=== PATIENT | male | born 1990 | race American Indian/Alaskan Native ===

== ENCOUNTER 2021-04-24 04:04 | Emergency (ER) | payer BC, OTHER ==
[2021-04-24 04:37] VITALS: BP 155/70
[2021-04-24] MEDS ORDERED: predniSONE 20 MG TAB PO ONE (04:39)
[2021-04-24] MEDS ORDERED: IPRATROPIUM/ALBUTEROL SULFATE 3 ML AMPUL.NEB IH ONE ×2 (04:39→05:32)
--- NOTE | 2021-04-24 04:45 | Emergency Department Report ---
- General Chief Complaint: Dyspnea/Respdistress Stated Complaint: CHEST PAIN/WHEEZING/SHORTNESS OF BREATH Source: patient Mode of arrival: Ambulatory Limitations: No Limitations - History of Present Illness Initial Comments: Patient is a 30-year-old -[place] male with a remote history of asthma who presents to the ED with complaint of acute onset persistent nasal and sinus congestion, persistent dry cough and wheezing with shortness of breath for the last 1 week. Patient states that in the last 3 days the persistent cough and shortness of breath is worsened. Patient denies fever, chills, nausea, vomiting, diarrhea, dizziness, syncope, sore throat, change in vision, lightheadedness or abdominal pain. MD Complaint: cough, rhinorrhea, nasal congestion, other (Shortness of breath) -: Sudden, week(s) (1) Severity: severe Severity scale (0 -10): 7 Quality: dull, aching Consistency: constant Improves With: nothing Worsens With: nothing Associated Symptoms: denies other symptoms, myalgias, headache, rhinorrhea, cough. denies: fever, chills, diaphoresis, stiff neck, chest pain, shortness of breath, abdominal pain, nausea, rash, right sweats, weight loss, epistaxis, hoarseness Treatments Prior to Arrival: none - Related Data Previous Rx's Medication Instructions Recorded Last Taken Type Albuterol Sulfate [Proventil Hfa] 1 - 2 puff IH Q6H PRN #1 hfa.aer.ad 04/24/21 Unknown Rx Azithromycin [Zithromax Z-SEBASTIAN] 250 mg PO DAILY #6 tablet 04/24/21 Unknown Rx Benzonatate [Tessalon Perles] 100 mg PO Q8HR #30 capsule 04/24/21 Unknown Rx Cetirizine HCl [Zyrtec 10mg tab] 10 mg PO DAILY #30 tablet 04/24/21 Unknown Rx methylPREDNISolone [Medrol 4MG 4 mg PO DAILY #21 tab.ds.pk 04/24/21 Unknown Rx DOSEPAK (21 tabs)] ED Review of Systems ROS: Stated complaint: CHEST PAIN/WHEEZING/SHORTNESS OF BREATH Other details as noted in HPI Constitutional: denies: chills, fever Eyes: denies: eye pain, eye discharge, vision change ENT: congestion, other (Nasal and sinus congestion). denies: ear pain, throat pain Respiratory: cough, shortness of breath, wheezing Cardiovascular: denies: chest pain, palpitations Endocrine: no symptoms reported Gastrointestinal: denies: abdominal pain, nausea, vomiting, diarrhea Genitourinary: denies: urgency, dysuria Musculoskeletal: denies: back pain, joint swelling, arthralgia Skin: denies: rash, lesions Neurological: denies: headache, weakness, paresthesias Psychiatric: denies: anxiety, depression Hematological/Lymphatic: denies: easy bleeding, easy bruising ED Past Medical Hx - Past Medical History Previous Medical History?: No - Surgical History Past Surgical History?: No - Medications Home Medications: Home Medications Medication Instructions Recorded Confirmed Last Taken Type Albuterol Sulfate [Proventil Hfa] 1 - 2 puff IH Q6H PRN #1 hfa.aer.ad 04/24/21 Unknown Rx Azithromycin [Zithromax Z-SEBASTIAN] 250 mg PO DAILY #6 tablet 04/24/21 Unknown Rx Benzonatate [Tessalon Perles] 100 mg PO Q8HR #30 capsule 04/24/21 Unknown Rx Cetirizine HCl [Zyrtec 10mg tab] 10 mg PO DAILY #30 tablet 04/24/21 Unknown Rx methylPREDNISolone [Medrol 4MG 4 mg PO DAILY #21 tab.ds.pk 04/24/21 Unknown Rx DOSEPAK (21 tabs)] ED Physical Exam - General Limitations: No Limitations General appearance: alert, in no apparent distress - Head Head exam: Present: atraumatic, normocephalic, normal inspection - Eye Eye exam: Present: normal appearance, PERRL, EOMI Pupils: Present: normal accommodation - ENT ENT exam: Present: normal orophraynx, mucous membranes moist, TM's normal bilaterally, normal external ear exam, other (Grossly congested nasal passages) - Neck Neck exam: Present: normal inspection, full ROM - Respiratory Respiratory exam: Present: wheezes (Mildly diffuse coarse wheezes). Absent: respiratory distress, rales, rhonchi, chest wall tenderness, decreased breath sounds, prolonged expiratory - Cardiovascular Cardiovascular Exam: Present: regular rate, normal rhythm, normal heart sounds. Absent: systolic murmur, diastolic murmur, rubs, gallop - GI/Abdominal GI/Abdominal exam: Present: soft, normal bowel sounds. Absent: tenderness, guarding, hyperactive bowel sounds, hypoactive bowel sounds, organomegaly - Extremities Exam Extremities exam: Present: normal inspection, full ROM, normal capillary refill - Back Exam Back exam: Present: normal inspection, full ROM. Absent: tenderness, CVA tenderness (R), CVA tenderness (L), muscle spasm - Neurological Exam Neurological exam: Present: alert, oriented X3, CN II-XII intact, normal gait, reflexes normal - Psychiatric Psychiatric exam: Present: normal affect, normal mood - Skin Skin exam: Present: warm, dry, intact, normal color. Absent: rash ED Course Vital Signs 04/24/21 04:30 Temperature 97.6 F Pulse Rate 73 Respiratory 18 Rate Blood Pressure 155/70 O2 Sat by Pulse 97 Oximetry ED Medical Decision Making - Radiology Data Radiology results: report reviewed, image reviewed [place] [id number] XRay Report Signed Patient: PARAG CORRALES MR#: [id number] : 1990 Acct:[id number] Age/Sex: 30 / M ADM Date: 04/24/21 Loc: ED Attending Dr: Ordering Physician: ALKO POWERS Date of Service: 04/24/21 Procedure(s): XR chest routine 2V Accession Number(s): [id number] cc: ALOK POWERS Fluoro Time In Minutes: CHEST 2 VIEWS INDICATION / CLINICAL INFORMATION: cough. COMPARISON: None available. FINDINGS: SUPPORT DEVICES: None. HEART / MEDIASTINUM: No significant abnormality. LUNGS / PLEURA: No significant pulmonary or pleural abnormality. No pneumothorax. ADDITIONAL FINDINGS: No significant additional findings. IMPRESSION: 1. No acute findings. Signer Name: Robert Burns MD Signed: 04/24/2021 5:07 AM Workstation Name: [id number] Transcribed By: DT Dictated By: Hudson Burns MD Electronically Authenticated By: Hudson Burns MD Signed Date/Time: 04/24/21506 DD/ 6 TD/TT: - Medical Decision Making This is a 30-year-old -Argent[place] male with a remote history of asthma who presents to the ED with complaint of acute onset persistent nasal and sinus congestion, persistent dry cough and wheezing with shortness of breath for the last 1 week. Patient states that in the last 3 days the persistent cough and shortness of breath is worsened. In the ED, patient is alert and oriented x3 and is not in any distress. Patient was treated in the ED with DuoNeb, oral prednisone and chest x-ray showed no acute cardiopulmonary abnormalities or pneumonitis. On reevaluation, patient felt better, patient was discharged home on medications and advised to follow-up with his primary care physician in 5 to 7 days for reevaluation. Patient was advised return to the ED immediately if symptoms get worse. - Differential Diagnosis Bronchitis; pneumonia; URI; sinusitis Critical care attestation.: If time is entered above; I have spent that time in minutes in the direct care of this critically ill patient, excluding procedure time. ED Disposition Clinical Impression: Acute upper respiratory infection, Acute asthmatic bronchitis Disposition: HOME / SELF CARE / HOMELESS Is pt being admited?: No Does the pt Need Aspirin: No Condition: Stable Instructions: Cough, Adult, [id number], Acute Bronchitis, Adult, [id number], Upper Respiratory Infection, Adult, [id number], Acute Bronchitis (ED) Additional Instructions: Chest x-ray showed no acute cardiopulmonary abnormalities or pneumonitis. Therefore take medication with food, drink plenty of fluids and follow-up with your primary care physician in 5 to 7 days for reevaluation. Return to the ED immediately if symptoms get worse. Prescriptions: methylPREDNISolone [Medrol 4MG DOSEPAK (21 tabs)] 4 mg PO DAILY #21 tab.ds.pk Albuterol Sulfate [Proventil Hfa] 1 - 2 puff IH Q6H PRN #1 hfa.aer.ad PRN Reason: Dyspnea Benzonatate [Tessalon Perles] 100 mg PO Q8HR #30 capsule Azithromycin [Zithromax Z-SEBASTIAN] 250 mg PO DAILY #6 tablet Cetirizine HCl [Zyrtec 10mg tab] 10 mg PO DAILY #30 tablet Referrals: [facility] [Provider Group] - 3-5 Days Forms: Work/School Release Form(ED) Time of Disposition: 04:43 Print Language: YAKUT
--- NOTE | 2021-04-24 05:11 | XRay Report ---
CHEST 2 VIEWS INDICATION / CLINICAL INFORMATION: cough. COMPARISON: None available. FINDINGS: SUPPORT DEVICES: None. HEART / MEDIASTINUM: No significant abnormality. LUNGS / PLEURA: No significant pulmonary or pleural abnormality. No pneumothorax. ADDITIONAL FINDINGS: No significant additional findings. IMPRESSION: 1. No acute findings. Signer Name: Robert Burns MD Signed: 04/24/2021 5:07 AM Workstation Name: [id number]
== END 2021-04-24 08:11 | disposition home or self-care (01) ==
LOC: ED 04:04
DX: J06.9 Acute upper respiratory infection, unspecified (principal); J45.909 Unspecified asthma, uncomplicated
CPT/HCPCS: 71046; 94640; 94644; 99283

== ENCOUNTER 2021-07-16 23:53 | Emergency (ER) | payer SELFPAY ==
[2021-07-17 00:34] VITALS: BP 134/66
[2021-07-17] MEDS ORDERED: predniSONE 20 MG TAB PO ONE (00:50)
--- NOTE | 2021-07-17 00:56 | Emergency Department Report ---
ED General Adult HPI - General Chief complaint: Chest Pain Stated complaint: CHEST PAIN Source: patient Mode of arrival: Ambulatory Limitations: No Limitations - History of Present Illness Initial comments: Patient is a 30-year-old -Maldivian male with a history of chronic bronchitis with occasional somewhat tobacco abuse who presents to the ED with complaint of acute onset persistent shortness of breath, persistent dry cough, pleuritic chest pain for the last 3 days. Patient states that the pain has been persistent and worse especially with cough or taking a deep breath. Patient denies dizziness, syncope, nausea, vomiting, palpitations, abdominal pain, diaphoresis, diarrhea, sore throat, urinary frequency and urgency, nasal and sinus congestion, headache and neck pain. MD Complaint: Cough, pleuritic chest pain, dyspnea -: Sudden, days(s) (3) Location: chest Radiation: non-radiation Severity scale (0 -10): 3 Quality: aching, dull Consistency: intermittent Improves with: none Worsens with: other (cough) Associated Symptoms: denies other symptoms, chest pain (pleuritic with cough), cough, shortness of breath. denies: confusion, diaphoresis, fever/chills, loss of appetite, malaise, nausea/vomiting, rash, other Treatments Prior to Arrival: none - Related Data Previous Rx's Medication Instructions Recorded Last Taken Type Albuterol Sulfate [Proventil Hfa] 1 - 2 puff IH Q6H PRN #1 hfa.aer.ad 04/24/21 Unknown Rx Azithromycin [Zithromax Z-SEBASTIAN] 250 mg PO DAILY #6 tablet 04/24/21 Unknown Rx Cetirizine HCl [Zyrtec 10mg tab] 10 mg PO DAILY #30 tablet 04/24/21 Unknown Rx Benzonatate [Tessalon Perles] 100 mg PO Q8HR #30 capsule 07/17/21 Unknown Rx Doxycycline Hyclate 100 mg PO Q12H #20 cap 07/17/21 Unknown Rx Ibuprofen [Motrin] 600 mg PO Q8H PRN #30 tablet 07/17/21 Unknown Rx methylPREDNISolone [Medrol 4MG 4 mg PO DAILY #21 tab.ds.pk 07/17/21 Unknown Rx DOSEPAK (21 tabs)] Allergies Allergy/AdvReac Type Severity Reaction Status Date / Time No Known Allergies Allergy Unverified 07/17/21 00:34 ED Review of Systems ROS: Stated complaint: CHEST PAIN Other details as noted in HPI Constitutional: denies: chills, fever Eyes: denies: eye pain, eye discharge, vision change ENT: denies: ear pain, throat pain Respiratory: cough, shortness of breath, wheezing Cardiovascular: chest pain (Pleuritic chest pain). denies: palpitations Endocrine: no symptoms reported Gastrointestinal: denies: abdominal pain, nausea, vomiting, diarrhea Genitourinary: denies: urgency, dysuria Musculoskeletal: denies: back pain, joint swelling, arthralgia Skin: denies: rash, lesions Neurological: denies: headache, weakness, paresthesias Psychiatric: denies: anxiety, depression Hematological/Lymphatic: denies: easy bleeding, easy bruising ED Past Medical Hx - Past Medical History Previous Medical History?: Yes Hx Asthma: Yes Additional medical history: Bronchitis - Surgical History Past Surgical History?: Yes Additional Surgical History: Right hand - Social History Smoking Status: Current Every Day Smoker Substance Use Type: None - Medications Home Medications: Home Medications Medication Instructions Recorded Confirmed Last Taken Type Albuterol Sulfate [Proventil Hfa] 1 - 2 puff IH Q6H PRN #1 hfa.aer.ad 04/24/21 Unknown Rx Azithromycin [Zithromax Z-SEBASTIAN] 250 mg PO DAILY #6 tablet 04/24/21 Unknown Rx Cetirizine HCl [Zyrtec 10mg tab] 10 mg PO DAILY #30 tablet 04/24/21 Unknown Rx Benzonatate [Tessalon Perles] 100 mg PO Q8HR #30 capsule 07/17/21 Unknown Rx Doxycycline Hyclate 100 mg PO Q12H #20 cap 07/17/21 Unknown Rx Ibuprofen [Motrin] 600 mg PO Q8H PRN #30 tablet 07/17/21 Unknown Rx methylPREDNISolone [Medrol 4MG 4 mg PO DAILY #21 tab.ds.pk 07/17/21 Unknown Rx DOSEPAK (21 tabs)] ED Physical Exam - General Limitations: No Limitations General appearance: alert, in no apparent distress - Head Head exam: Present: atraumatic, normocephalic, normal inspection - Eye Eye exam: Present: normal appearance, PERRL, EOMI Pupils: Present: normal accommodation - ENT ENT exam: Present: normal exam, normal orophraynx, mucous membranes moist, TM's normal bilaterally, normal external ear exam - Neck Neck exam: Present: normal inspection, full ROM - Respiratory Respiratory exam: Present: normal lung sounds bilaterally. Absent: respiratory distress, wheezes, rales, rhonchi, chest wall tenderness, accessory muscle use, decreased breath sounds - Cardiovascular Cardiovascular Exam: Present: regular rate, normal rhythm, normal heart sounds. Absent: systolic murmur, diastolic murmur, rubs, gallop - GI/Abdominal GI/Abdominal exam: Present: soft, normal bowel sounds. Absent: tenderness, guarding, rebound, hyperactive bowel sounds, hypoactive bowel sounds, organomegaly, mass - Extremities Exam Extremities exam: Present: normal inspection, full ROM, normal capillary refill - Back Exam Back exam: Present: normal inspection, full ROM. Absent: tenderness, CVA tenderness (R), CVA tenderness (L), muscle spasm, paraspinal tenderness, vertebral tenderness - Neurological Exam Neurological exam: Present: alert, oriented X3, CN II-XII intact, normal gait, reflexes normal - Psychiatric Psychiatric exam: Present: normal affect, normal mood - Skin Skin exam: Present: warm, dry, intact, normal color. Absent: rash ED Course Vital Signs 07/17/21 07/17/21 00:29 01:01 Temperature 98.6 F Pulse Rate 78 Respiratory 18 14 Rate Blood Pressure 134/66 O2 Sat by Pulse 99 Oximetry ED Medical Decision Making - Radiology Data Radiology results: report reviewed, image reviewed [address] [address] XRay Report Signed Patient: PARAG CORRALES MR#: [id number] : 1990 Acct:[id number] Age/Sex: 30 / M ADM Date: 07/16/21 Loc: ED Attending Dr: Ordering Physician: ALOK POWERS Date of Service: 07/17/21 Procedure(s): XR chest 1V ap Accession Number(s): [id number] cc: ALOK POWERS Fluoro Time In Minutes: CHEST 1 VIEW 07/17/2021 1:09 AM INDICATION / CLINICAL INFORMATION: Cough and dyspnea. COMPARISON: 04/24/21. FINDINGS: SUPPORT DEVICES: None. HEART / MEDIASTINUM: The heart size and pulmonary vasculature are normal. LUNGS / PLEURA: No significant pulmonary or pleural abnormality. No pneumothorax. ADDITIONAL FINDINGS: No significant additional findings. IMPRESSION: No acute abnormality or significant change. Signer Name: Zachary Alejo MD Signed: 07/17/2021 1:23 AM Workstation Name: [id number] Transcribed By: RT Dictated By: Zachary Alejo MD Electronically Authenticated By: Zachary Alejo MD Signed Date/Time: 07/17/21122 DD/ 2 TD/TT: Print - Medical Decision Making This is a 30-year-old -Maldivian male with a history of chronic bronchitis with occasional somewhat tobacco abuse who presents to the ED with complaint of acute onset persistent shortness of breath, persistent dry cough, pleuritic chest pain for the last 3 days. Patient states that the pain has been persistent and worse especially with cough or taking a deep breath. In the ED, patient is alert and oriented x3 and is not in distress. Patient is hemodynamically stable. Chest x-ray showed no acute cardiopulmonary abnormalities or pneumonitis. Patient was treated with oral prednisone in the ED and discharged home on medications. Patient was advised to follow-up with his primary care physician in 5 to 7 days for reevaluation or return to the ED immediately if symptoms get worse. - Differential Diagnosis Asthma; URI; bronchitis; pneumonia; Critical care attestation.: If time is entered above; I have spent that time in minutes in the direct care of this critically ill patient, excluding procedure time. ED Disposition Clinical Impression: Acute asthmatic bronchitis, Shortness of breath Disposition: HOME / SELF CARE / HOMELESS Is pt being admited?: No Does the pt Need Aspirin: No Condition: Stable Instructions: Shortness of Breath, Adult, Jjxv-[id number], Cough, Adult, Wjuv-hl-Gskn, Asthma, Adult, Imvw-lr-Uvrn, Chronic Bronchitis, Adult, Acute Bronchitis (ED) Additional Instructions: Chest x-ray showed no acute cardiopulmonary abnormalities or pneumonitis. Your symptoms are likely exacerbation of chronic bronchitis with chest wall pain. Therefore take medications with food, drink plenty of fluids and follow-up with your primary care physician in 7 to 10 days for reevaluation. Return to the ED immediately if symptoms get worse. Prescriptions: Doxycycline Hyclate 100 mg PO Q12H #20 cap methylPREDNISolone [Medrol 4MG DOSEPAK (21 tabs)] 4 mg PO DAILY #21 tab.ds.pk Ibuprofen [Motrin] 600 mg PO Q8H PRN #30 tablet PRN Reason: Pain Benzonatate [Tessalon Perles] 100 mg PO Q8HR #30 capsule Referrals: [facility] [Provider Group] - 7-10 days Time of Disposition: 00:54 Print Language: SERBIAN
[2021-07-17] MEDS ORDERED: IBUPROFEN 600 MG TAB PO ONE (00:57)
--- NOTE | 2021-07-17 01:28 | XRay Report ---
CHEST 1 VIEW 07/17/2021 1:09 AM INDICATION / CLINICAL INFORMATION: Cough and dyspnea. COMPARISON: 04/24/21. FINDINGS: SUPPORT DEVICES: None. HEART / MEDIASTINUM: The heart size and pulmonary vasculature are normal. LUNGS / PLEURA: No significant pulmonary or pleural abnormality. No pneumothorax. ADDITIONAL FINDINGS: No significant additional findings. IMPRESSION: No acute abnormality or significant change. Signer Name: Zachary Alejo MD Signed: 07/17/2021 1:23 AM Workstation Name: [id number]
--- NOTE | 2021-07-17 11:45 | Electrocardiograph Report ---
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
== END 2021-07-17 01:40 | disposition home or self-care (01) ==
LOC: ED 23:53
DX: J45.901 Unspecified asthma with (acute) exacerbation (principal); R06.02 Shortness of breath; J45.909 Unspecified asthma, uncomplicated
CPT/HCPCS: 71045; 93005; 93010; 99283

== ENCOUNTER 2021-08-10 05:56 | Emergency (ER) | payer SELFPAY ==
[2021-08-10 06:33] VITALS: BP 116/78
[2021-08-10] MEDS ORDERED: IBUPROFEN 400 MG TAB PO ONE (09:49)
--- NOTE | 2021-08-10 09:50 | Emergency Department Report ---
ED General Adult HPI - General Chief complaint: Dyspnea/Respdistress Stated complaint: Cough, back pain, mucus production PUI?: No Time Seen by Provider: 08/10/21 09:29 Source: patient, RN notes reviewed, old records reviewed Mode of arrival: Ambulatory Limitations: No Limitations - History of Present Illness Initial comments: The patient was evaluated in the emergency department for symptoms described in the history of present illness. He/she was evaluated in the context of the global COVID-19 pandemic, which necessitated consideration that the patient might be at risk for infection with the virus that causes COVID-19. Institutional protocols and algorithms that pertain to the evaluation of patients at risk for COVID-19 are in a state of rapid change based on information released by regulatory bodies including the CDC and federal and state organizations. These policies and algorithms were followed during the patient's care in the emergency department. Please note that these policies, procedures and recommendations changed on a rapid basis. This patient is a 31-year-old gentleman, presenting to the ER with a complaint of persistent cough and phlegm production as well as mechanical lower back pain. The symptoms have been going on for weeks to months. He reports that he does not smoke cigarettes or marijuana. He reports that he was diagnosed with COVID-19 twice last year. He does not have a local primary care doctor. He recently relocated here from [facility]. He also reports chronic mechanical lower back pain, and reports that he was supposed to have an outpatient MRI in [place], months or years ago. At the moment, denies fever, vomiting, chest pain, abdominal pain, testicular pain, extremity weakness/numbness. He is adamant that he does not smoke marijuana. He does not know if he is exposed to secondhand marijuana, but reports "everybody in [place] smokes weed." -: Gradual, week(s) Location: back Severity scale (0 -10): 10 Quality: aching Consistency: intermittent Improves with: none Worsens with: none - Related Data Previous Rx's Medication Instructions Recorded Last Taken Type Cetirizine HCl [Zyrtec 10mg tab] 10 mg PO DAILY #30 tablet 04/24/21 Unknown Rx Ibuprofen [Motrin 600 MG tab] 600 mg PO Q8H PRN #30 tablet 07/17/21 Unknown Rx Albuterol Sulfate [Proventil Hfa] 1 - 2 puff IH Q6H PRN #1 hfa.aer.ad 08/10/21 Unknown Rx Benzonatate [Tessalon Perles] 100 mg PO Q8HR #30 capsule 08/10/21 Unknown Rx Allergies Allergy/AdvReac Type Severity Reaction Status Date / Time No Known Allergies Allergy Unverified 07/17/21 00:34 ED Review of Systems ROS: Stated complaint: CHEST PAIN/SOB/COUGH Other details as noted in HPI Constitutional: denies: fever ENT: congestion Respiratory: cough, wheezing Cardiovascular: denies: chest pain Gastrointestinal: denies: abdominal pain Genitourinary: denies: testicular pain Musculoskeletal: back pain Neurological: denies: weakness ED Past Medical Hx - Past Medical History Hx Asthma: Yes Additional medical history: Bronchitis - Surgical History Additional Surgical History: Right hand - Social History Smoking Status: Current Every Day Smoker Substance Use Type: None - Medications Home Medications: Home Medications Medication Instructions Recorded Confirmed Last Taken Type Cetirizine HCl [Zyrtec 10mg tab] 10 mg PO DAILY #30 tablet 04/24/21 Unknown Rx Ibuprofen [Motrin 600 MG tab] 600 mg PO Q8H PRN #30 tablet 07/17/21 Unknown Rx Albuterol Sulfate [Proventil Hfa] 1 - 2 puff IH Q6H PRN #1 hfa.aer.ad 08/10/21 Unknown Rx Benzonatate [Tessalon Perles] 100 mg PO Q8HR #30 capsule 08/10/21 Unknown Rx ED Physical Exam - General Limitations: No Limitations General appearance: alert, in no apparent distress - Head Head exam: Present: atraumatic, normocephalic - Eye Eye exam: Present: normal appearance, EOMI. Absent: nystagmus - ENT ENT exam: Present: normal exam, normal orophraynx, mucous membranes moist, normal external ear exam - Neck Neck exam: Present: normal inspection, full ROM. Absent: tenderness, meningismus - Respiratory Respiratory exam: Present: normal lung sounds bilaterally. Absent: respiratory distress, wheezes, rales, rhonchi, stridor, decreased breath sounds - Cardiovascular Cardiovascular Exam: Present: regular rate, normal rhythm, normal heart sounds. Absent: bradycardia, tachycardia, irregular rhythm, systolic murmur, diastolic murmur, rubs, gallop - GI/Abdominal GI/Abdominal exam: Present: soft. Absent: distended, tenderness, guarding, rebound, rigid, pulsatile mass - Rectal Rectal exam: Present: deferred - Extremities Exam Extremities exam: Present: normal inspection, full ROM, other (2+ pulses noted in the bilateral upper and lower extremities. There is no palpable cord. neg ative Homans sign. Muscular compartments are soft. The pelvis is stable.). Absent: pedal edema, calf tenderness - Back Exam Back exam: Present: normal inspection, full ROM. Absent: tenderness, CVA tenderness (R), CVA tenderness (L), paraspinal tenderness, vertebral tenderness - Neurological Exam Neurological exam: Present: alert, oriented X3, normal gait, other (No facial droop. Tongue midline. Extraocular movements intact bilaterally. Facial sensation intact to light touch in V1, V2, V3 distribution bilaterally. 5 and a 5 strength in 4 extremities. Sensation intact to light touch in 4 extremities.). Absent: motor sensory deficit - Psychiatric Psychiatric exam: Present: normal affect, normal mood - Skin Skin exam: Present: warm, dry, intact, normal color. Absent: rash ED Course Vital Signs 08/10/21 06:27 Temperature 97.6 F Pulse Rate 60 Respiratory 17 Rate Blood Pressure 116/78 [Right] O2 Sat by Pulse 98 Oximetry ED Medical Decision Making - Lab Data Vital Signs 08/10/21 06:27 Temperature 97.6 F Pulse Rate 60 Respiratory 17 Rate Blood Pressure 116/78 [Right] O2 Sat by Pulse 98 Oximetry - EKG Data -: EKG Interpreted by Nh EKG shows normal: sinus rhythm Rate: normal - EKG Data Interpretation: unchanged when compared t 08/10/21 10:07 EKG today is unchanged from prior EKG. The EKG today is interpreted at 06: 4 0 Sinus rhythm, rate 61 bpm. Borderline rightward axis deviation. High left ventricular voltage. Normal P wave axis. Not a STEMI - Radiology Data Radiology results: pending, report reviewed, image reviewed Prior x-rays from this year are reviewed and appreciated - Medical Decision Making Differential diagnosis, including but not limited to: Bronchitis, mechanical back pain Assessment and plan 31-year-old gentleman, who is afebrile, with reassuring vital signs, who is clinically sober, with a GCS of 15, not currently tachycardic, tachypneic or hypoxic, denies DVT and pulmonary embolism risk factors, low risk by Wells criteria for pulmonary embolism and PERC negative, with primary complaint of persistent cough. Lung sounds clear. Saturating well on room air. Had an unremarkable chest x- ray last month. The patient denies consumption and exposure to marijuana and cannabis, but upon walking into the patient's room, this provider appreciates a very strong smell of marijuana. The patient is advised to avoid consumption exposure of marijuana, tobacco and smoke products. Counseled on the natural history of bronchitis, as well as long COVID. Supportive and outpatient care. He has chronic back pain which appears to be mechanical, he is ambulatory with a steady gait, without evidence of neurologic deficits. Outpatient follow-up for chronic back pain. Patient observed in this ER for hours without clinical decompensation, and is suitable to follow-up as an outpatient for his multiple chronic issues Critical care attestation.: If time is entered above; I have spent that time in minutes in the direct care of this critically ill patient, excluding procedure time. ED Disposition Clinical Impression: Bronchitis, Chronic back pain Disposition: HOME / SELF CARE / HOMELESS Is pt being admited?: No Does the pt Need Aspirin: No Condition: Good Instructions: Chronic Bronchitis (ED), Chronic Back Pain, Chronic Bronchitis, Adult Additional Instructions: Symptoms of bronchitis, long COVID can persist for weeks or even months. There is no cure for bronchitis at this time. Antibiotics not indicated or necessary at this time patient may take the prescribed breathing medication and cough medication as needed and directed. We strongly advised that patient abstain from consumption/exposure to marijuana, tobacco and smoke products. Please follow-up with your primary care doctor within the next month. Please follow-up with a product marketing specialist for chronic back pain, such as [facility], within the next 3 to 4 weeks. Rest and avoid heavy lifting, and alternate ice packs and heat packs as needed for physical pain. Please return to the emergency room right away with new pain, worsened pain, migration of pain, projectile vomiting, change in mental status, confusion, inability tolerate liquid feeds, new, worsened or different symptoms not present on the initial emergency room evaluation Referrals: [facility] [Provider Group] - 3-5 Days [facility] [Provider Group] - 3-5 Days Forms: Work/School Release Form(ED)
--- NOTE | 2021-08-10 10:55 | Electrocardiograph Report ---
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
== END 2021-08-10 10:30 | disposition home or self-care (01) ==
LOC: ED 05:56
DX: J45.909 Unspecified asthma, uncomplicated (principal); G89.29 Other chronic pain; F17.200 Nicotine dependence, unspecified, uncomplicated; Z79.899 Other long term (current) drug therapy
CPT/HCPCS: 93005; 93010; 99282